=== PATIENT | male | born 1945 | race Caucasian/White ===

== ENCOUNTER 2022-06-14 15:51 | Emergency (ER) | payer OTHER ==
[~2022-06-14] VITALS: Ht 177.8 cm; Wt 79.5 kg
[2022-06-14 16:17] VITALS: BP 148/99
[2022-06-14] MEDS ORDERED: magnesium citrate 296ml oral solution PO ONE (16:50)
[2022-06-14] MEDS ORDERED: lactulose 20gm/30ml cup PO ONE (16:50)
[2022-06-14] MEDS ORDERED: magnesium hydroxide 30ml (MOM) UD suspension PO ONE (16:55)
[2022-06-14] MEDS ORDERED: GLYC-23 RC (17:17)
== END 2022-06-14 17:37 | disposition home or self-care (01) ==
LOC: ER 15:52
DX: K59.00 Constipation, unspecified (principal); Z88.0 Allergy status to penicillin
CPT/HCPCS: 99283